=== PATIENT | male | born 1945 | race Caucasian/White ===

== ENCOUNTER 2023-09-11 10:45 | Inpatient (IN) ==
[2023-09-11] MEDS ORDERED: IOPAMIDOL 100 ML BOTTLE IV ONE (10:46)
[2023-09-11] MEDS: 0.9 % SODIUM CHLORIDE 1,000 ML IV ONE (11:24)
[2023-09-11 11:41] LABS: Basophils # (Auto) 0.01 K/mcL (0.00-0.30); Basophils % (Auto) 0.1 % (0.0-2.0); Eosinophils # (Auto) 0.02 K/mcL (0.00-0.70); Eosinophils % (Auto) 0.2 % (0.0-7.0); Hematocrit 44.7 % (40.1-51.0); Lymphocytes # (Auto) 1.05 K/mcL (1.50-4.80); Lymphocytes % (Auto) 11.9 % (15.5-49.0); Mean Cell Volume 99.6 fL (80.0-100.0); Mean Corpuscular HGB Conc 31.3 g/dL (31.0-36.0); Mean Platelet Volume 9.6 fL (8.8-12.5); Monocytes # (Auto) 0.69 K/mcL (0.10-0.90); Monocytes % (Auto) 7.8 % (1.0-12.0); Neutrophils % (Auto) 79.7 % (38.0-78.0); Platelet Count 332 K/mcL (140-440); RBC 4.49 M/mcL (4.63-6.08); Red Cell Distribution Width 12.6 % (11.5-14.5); WBC 8.8 K/mcL (4.5-11.0)
[2023-09-11 12:07] LABS: ALT/SGPT 20 U/L (<40); AST/SGOT 42 U/L (<40); Albumin 3.5 gm/dL (3.2-5.2); Albumin/Globulin Ratio 1.1 (1.0-2.3); Alkaline Phosphatase 85 U/L (39-117); Bilirubin,Total 0.9 mg/dL (0.1-1.0); Blood Urea Nitrogen 22 mg/dL (8-23); Calcium 9.7 mg/dL (8.6-10.4); Carbon Dioxide 21 mmol/L (22-30); Chloride 101 mmol/L (96-108); Globulin 3.3 gm/dL (2.2-3.7); Glomerular Filtration Rate 82; Glucose 120 mg/dL (70-105); Potassium 4.2 mmol/L (3.3-5.1); Sodium 137 mmol/L (133-145); Thyroid Stimulating Hormone 1.72 uIU/mL (0.27-5.01)
[2023-09-11 12:31] LABS: Free T4 (Free Thyroxine) 1.73 ng/dL (0.93-1.70); INR 1.2 (0.9-1.1); Prothrombin Time 15.2 sec (11.9-14.5)
[2023-09-11] MEDS: METOPROLOL TARTRATE 5 MG/5 ML VIAL IV ONE (12:34)
[2023-09-11] MEDS: DILTIAZEM 25 MG/5 ML VIAL IV ONE (14:54)
[2023-09-11 15:00] LABS: Appearance,Urine Clear (Clear); Bacteria,Urine 0 /hpf (0); Bilirubin,Urine Negative (Negative); Color,Urine Yellow; Culture Indicated,Urine No; Glucose,Urine (UA) 100 mg/dL (Negative); Ketones,Urine 15 mg/dL (Negative); Leukocyte Esterase,Urine Negative /uL (Negative); Nitrate,Urine Negative (Negative); PH,Urine 5.5 (5.0-9.0); Protein,Urine 30 mg/dL (Negative); Specific Gravity,Urine 1.025 (1.000-1.035); Urine Blood Trace-intact ery/mcL (Negative); Urine RBC 0 /hpf (0-3); Urine Squamous Epithelial Cell 0 /hpf (0-4); Urine WBC 0 /hpf (0-4); Urobilinogen,Urine Normal
[2023-09-11 15:18] LABS: Amylase,Pleural Fluid 33 U/L; Glucose,Pleural Fluid 114 mg/dL; LDH,Pleural Fluid 379 U/L (<122); Total Protein,Pleural Fluid 3.9 gm/dL
[2023-09-11 15:48] LABS: Appearance,Pleural Fluid Hazy; Color,Pleural Fluid Orange; Lymphocytes,Pleural Fluid 49 %; Mesothelial,Pleural Fluid 29 %; Monocytes,Pleural Fluid 20 %; Neutrophils,Pleural Fluid 2 %; Nucleated Cells,Pleural Fld 803 /cumm; RBC,Pleural Fluid <50,000 /cumm
[2023-09-11 15:48] LABS: Lactate Dehydrogenase 352 U/L (135-225)
[2023-09-11] MEDS ORDERED: BISACODYL 10 MG SUPP.RECT PR PRN (18:41)
[2023-09-11] MEDS ORDERED: MAGNESIUM HYDROXIDE 30 ML ORAL.SUSP PO PRN (18:41)
[2023-09-11] MEDS ORDERED: ONDANSETRON 4 MG/2 ML VIAL IV PRN (18:41)
[2023-09-11] MEDS ORDERED: SENNOSIDES 1 TABLET PO PRN (18:41)
[2023-09-11] MEDS ORDERED: IPRATROPIUM/ALBUTEROL 3 ML AMPUL.NEB NEB PRN (18:41)
[2023-09-11] MEDS: cefTRIAXone 2 GM VIAL ONE (20:01)
[2023-09-11] MEDS: 0.9 % SODIUM CHLORIDE 1,000 ML IV SCH (20:02)
[2023-09-11] MEDS: cefTRIAXone 2 GM in DEXTROSE 5% IN WATER 50 ML IV SCH (20:46)
[2023-09-11] MEDS: 0.9 % SODIUM CHLORIDE 10 ML SYRINGE IV SCH (22:10)
[2023-09-11] MEDS: DOXYCYCLINE HYCLATE 100 MG TABLET.ORL PO SCH (22:10)
[2023-09-12 07:03] LABS: Basophils # (Auto) 0.02 K/mcL (0.00-0.30); Basophils % (Auto) 0.3 % (0.0-2.0); Eosinophils # (Auto) 0.05 K/mcL (0.00-0.70); Eosinophils % (Auto) 0.7 % (0.0-7.0); Lymphocytes # (Auto) 0.88 K/mcL (1.50-4.80); Lymphocytes % (Auto) 12.6 % (15.5-49.0); Mean Corpuscular HGB Conc 31.7 g/dL (31.0-36.0); Mean Platelet Volume 9.4 fL (8.8-12.5); Monocytes # (Auto) 0.71 K/mcL (0.10-0.90); Monocytes % (Auto) 10.1 % (1.0-12.0); Neutrophils % (Auto) 75.9 % (38.0-78.0); Platelet Count 303 K/mcL (140-440); RBC 4.14 M/mcL (4.63-6.08); Red Cell Distribution Width 12.6 % (11.5-14.5)
[2023-09-12 07:05] LABS: ALT/SGPT 17 U/L (<40); AST/SGOT 39 U/L (<40); Albumin 3.2 gm/dL (3.2-5.2); Albumin/Globulin Ratio 1.1 (1.0-2.3); Alkaline Phosphatase 73 U/L (39-117); Bilirubin,Direct 0.3 mg/dL (<0.3); Bilirubin,Total 0.7 mg/dL (0.1-1.0); Blood Urea Nitrogen 20 mg/dL (8-23); Calcium 9.1 mg/dL (8.6-10.4); Carbon Dioxide 26 mmol/L (22-30); Chloride 103 mmol/L (96-108); Globulin 2.8 gm/dL (2.2-3.7); Glomerular Filtration Rate 73; Glucose 102 mg/dL (70-105); Lactate Dehydrogenase 312 U/L (135-225); Phosphorous 2.8 mg/dL (2.5-4.5); Sodium 140 mmol/L (133-145); Triglycerides 77 mg/dL (<150); Uric Acid 5.2 mg/dL (2.5-8.0)
[2023-09-12] MEDS ORDERED: FEXOFENADINE 180 MG TABLET PO PRN (07:52)
[2023-09-12 08:55] LABS: INR 1.2 (0.9-1.1); Prothrombin Time 15.5 sec (11.9-14.5)
[2023-09-12] MEDS ORDERED: PRAVASTATIN 20 MG TABLET PO SCH (09:00)
[2023-09-12] MEDS: ENOXAPARIN 40 MG/0.4 ML SYRINGE SQ SCH (09:41)
[2023-09-12] MEDS: MEMANTINE 10 MG TABLET PO SCH (09:41)
[2023-09-12] MEDS: GABAPENTIN 100 MG CAPSULE PO SCH (09:42)
[2023-09-12] MEDS: OMEPRAZOLE 20 MG CAPSULE PO SCH (09:42)
[2023-09-12] MEDS: ASPIRIN 81 MG TAB.CHEW PO SCH (09:42)
[2023-09-12] MEDS: cefTRIAXone 2 GM VIAL ONE (10:28)
[2023-09-12] MEDS: SIMVASTATIN 20 MG TABLET PO SCH (10:49)
[2023-09-12] MEDS: 0.9 % SODIUM CHLORIDE 1,000 ML IV SCH (10:52)
[2023-09-12] MEDS: SIMVASTATIN 10 MG TABLET PO SCH (11:00)
[2023-09-12 11:55] LABS: Amylase,Pleural Fluid 32 U/L; Glucose,Pleural Fluid 103 mg/dL; LDH,Pleural Fluid 386 U/L (<122)
[2023-09-12 12:45] LABS: Appearance,Pleural Fluid Cloudy; Color,Pleural Fluid Orange; Lymphocytes,Pleural Fluid 39 %; Mesothelial,Pleural Fluid 15 %; Monocytes,Pleural Fluid 28 %; Neutrophils,Pleural Fluid 9 %; Nucleated Cells,Pleural Fld 706 /cumm; Other Cells,Pleural Cells 8 %; Plasma Cell,Pleural Fluid 1 %; RBC,Pleural Fluid <50,000 /cumm
[2023-09-12 14:31] LABS: pH,Body Fluid 7.68
[2023-09-12] MEDS: ACETAMINOPHEN 325 MG TABLET PO PRN (20:20)
[2023-09-12] MEDS: DONEPEZIL 10 MG TABLET PO SCH (20:21)
[2023-09-13] MEDS: METOPROLOL TARTRATE 5 MG/5 ML VIAL IV SCH (03:37)
[2023-09-13] MEDS: METOPROLOL TARTRATE 5 MG/5 ML VIAL IV ONE ×4 (04:09→11:53)
[2023-09-13 06:43] LABS: ALT/SGPT 14 U/L (<40); AST/SGOT 35 U/L (<40); Albumin/Globulin Ratio 1.2 (1.0-2.3); Alkaline Phosphatase 69 U/L (39-117); Bilirubin,Direct 0.2 mg/dL (<0.3); Bilirubin,Total 0.4 mg/dL (0.1-1.0); Blood Urea Nitrogen 21 mg/dL (8-23); Calcium 8.9 mg/dL (8.6-10.4); Carbon Dioxide 26 mmol/L (22-30); Chloride 106 mmol/L (96-108); Globulin 2.6 gm/dL (2.2-3.7); Glomerular Filtration Rate 82; Glucose 118 mg/dL (70-105); Lactate Dehydrogenase 279 U/L (135-225); Phosphorous 2.9 mg/dL (2.5-4.5); Sodium 140 mmol/L (133-145); Triglycerides 81 mg/dL (<150); Uric Acid 4.9 mg/dL (2.5-8.0)
[2023-09-13 07:14] LABS: Basophils # (Auto) 0.02 K/mcL (0.00-0.30); Basophils % (Auto) 0.3 % (0.0-2.0); Eosinophils # (Auto) 0.09 K/mcL (0.00-0.70); Eosinophils % (Auto) 1.2 % (0.0-7.0); Hematocrit 43.8 % (40.1-51.0); Hemoglobin 13.6 g/dL (13.7-17.5); Lymphocytes # (Auto) 0.87 K/mcL (1.50-4.80); Mean Cell Volume 101.2 fL (80.0-100.0); Mean Corpuscular HGB Conc 31.1 g/dL (31.0-36.0); Mean Platelet Volume 9.8 fL (8.8-12.5); Monocytes % (Auto) 9.7 % (1.0-12.0); Neutrophils % (Auto) 76.5 % (38.0-78.0); Platelet Count 315 K/mcL (140-440); RBC 4.33 M/mcL (4.63-6.08); Red Cell Distribution Width 12.8 % (11.5-14.5); WBC 7.3 K/mcL (4.5-11.0)
[2023-09-13] MEDS: METOPROLOL TARTRATE 25 MG TABLET PO SCH ×3 (08:19→19:51)
[2023-09-13] MEDS: cefTRIAXone 2 GM VIAL ONE (08:41)
[2023-09-13] MEDS: ENOXAPARIN 40 MG/0.4 ML SYRINGE SQ ONE ×2 (09:36→09:37)
[2023-09-13] MEDS: METOPROLOL TARTRATE 25 MG TABLET PO ONE (10:01)
[2023-09-13] MEDS: PNEUMOCOCCAL 23-VAL P-SAC VAC 0.5 ML SYRINGE IM ONE (11:58)
[2023-09-13] MEDS: LORazepam 2 MG/ML VIAL IV ONE (14:27)
[2023-09-13] MEDS ORDERED: METOPROLOL TARTRATE 25 MG TABLET PO SCH ×2 (15:00→21:00)
[2023-09-13] MEDS: LACTATED RINGERS 250 ML IV ONE ×2 (17:21→18:00)
[2023-09-13] MEDS: APIXABAN 5 MG TABLET PO SCH (19:49)
[2023-09-13] MEDS: LACTATED RINGERS 1,000 ML IV SCH (19:50)
[2023-09-13] MEDS: METOPROLOL TARTRATE 50 MG TABLET ONE (19:51)
[2023-09-13] MEDS: APIXABAN 5 MG TABLET PO ONE (19:51)
[2023-09-13] MEDS: DILTIAZEM 25 MG/5 ML VIAL IV ONE (20:48)
[2023-09-14 05:52] LABS: Basophils # (Auto) 0.01 K/mcL (0.00-0.30); Basophils % (Auto) 0.1 % (0.0-2.0); Eosinophils # (Auto) 0.13 K/mcL (0.00-0.70); Eosinophils % (Auto) 1.5 % (0.0-7.0); Hematocrit 39.6 % (40.1-51.0); Hemoglobin 12.7 g/dL (13.7-17.5); Lymphocytes # (Auto) 1.42 K/mcL (1.50-4.80); Lymphocytes % (Auto) 16.5 % (15.5-49.0); Mean Cell Volume 98.5 fL (80.0-100.0); Mean Corpuscular HGB Conc 32.1 g/dL (31.0-36.0); Mean Platelet Volume 9.4 fL (8.8-12.5); Monocytes % (Auto) 9.3 % (1.0-12.0); Neutrophils % (Auto) 72.1 % (38.0-78.0); Platelet Count 308 K/mcL (140-440); RBC 4.02 M/mcL (4.63-6.08); Red Cell Distribution Width 12.7 % (11.5-14.5); WBC 8.6 K/mcL (4.5-11.0)
[2023-09-14 06:22] LABS: ALT/SGPT 11 U/L (<40); AST/SGOT 29 U/L (<40); Albumin 2.9 gm/dL (3.2-5.2); Albumin/Globulin Ratio 1.2 (1.0-2.3); Alkaline Phosphatase 64 U/L (39-117); Bilirubin,Direct < 0.2 mg/dL (0-0.3); Bilirubin,Total 0.4 mg/dL (0.1-1.0); Blood Urea Nitrogen 26 mg/dL (8-23); Carbon Dioxide 26 mmol/L (22-30); Chloride 105 mmol/L (96-108); Globulin 2.4 gm/dL (2.2-3.7); Glomerular Filtration Rate 65; Glucose 116 mg/dL (70-105); Lactate Dehydrogenase 249 U/L (135-225); Phosphorous 3.1 mg/dL (2.5-4.5); Potassium 4.2 mmol/L (3.3-5.1); Sodium 140 mmol/L (133-145); Triglycerides 103 mg/dL (<150); Uric Acid 5.1 mg/dL (2.5-8.0)
[2023-09-15 06:24] LABS: Basophils # (Auto) 0.02 K/mcL (0.00-0.30); Basophils % (Auto) 0.2 % (0.0-2.0); Eosinophils # (Auto) 0.15 K/mcL (0.00-0.70); Eosinophils % (Auto) 1.8 % (0.0-7.0); Hematocrit 42.6 % (40.1-51.0); Hemoglobin 13.1 g/dL (13.7-17.5); Lymphocytes # (Auto) 1.08 K/mcL (1.50-4.80); Lymphocytes % (Auto) 12.9 % (15.5-49.0); Mean Cell Volume 100.7 fL (80.0-100.0); Mean Corpuscular HGB Conc 30.8 g/dL (31.0-36.0); Mean Platelet Volume 9.5 fL (8.8-12.5); Monocytes # (Auto) 0.72 K/mcL (0.10-0.90); Monocytes % (Auto) 8.6 % (1.0-12.0); Neutrophils % (Auto) 75.8 % (38.0-78.0); Platelet Count 315 K/mcL (140-440); RBC 4.23 M/mcL (4.63-6.08); Red Cell Distribution Width 12.9 % (11.5-14.5); WBC 8.4 K/mcL (4.5-11.0)
[2023-09-15 06:56] LABS: ALT/SGPT 14 U/L (<40); AST/SGOT 45 U/L (<40); Albumin 2.8 gm/dL (3.2-5.2); Alkaline Phosphatase 66 U/L (39-117); Bilirubin,Direct < 0.2 mg/dL (0-0.3); Bilirubin,Total 0.4 mg/dL (0.1-1.0); Blood Urea Nitrogen 25 mg/dL (8-23); Calcium 9.1 mg/dL (8.6-10.4); Carbon Dioxide 25 mmol/L (22-30); Chloride 104 mmol/L (96-108); Globulin 2.9 gm/dL (2.2-3.7); Glomerular Filtration Rate 65; Glucose 98 mg/dL (70-105); Lactate Dehydrogenase 454 U/L (135-225); Phosphorous 2.8 mg/dL (2.5-4.5); Potassium 4.5 mmol/L (3.3-5.1); Sodium 139 mmol/L (133-145); Triglycerides 120 mg/dL (<150)
[2023-09-15] MEDS: CEFDINIR 300 MG CAPSULE PO SCH (08:18)
[2023-09-15] MEDS: DOXYCYCLINE HYCLATE 100 MG TABLET.ORL PO SCH (08:19)
[2023-09-15] MEDS: APIXABAN 5 MG TABLET PO SCH (08:24)
[2023-09-18 03:20] LABS: Rickettsia/SII DNA, RT PCR-SO NOT DETECTED
[2023-09-18 19:55] LABS: Lyme Ab Screen <0.90 INDEX
== END 2023-09-15 14:18 | DRG 180 ==
LOC: ED 10:45 → MEDSUR 18:14 → ICU 09-13 04:17
PROVIDERS: ADMIT Student in an Organized Health Care Education/Training Program; ATTEND Student in an Organized Health Care Education/Training Program